=== PATIENT | female | born 1965 | race Caucasian/White ===

== ENCOUNTER 2017-12-10 07:23 | Day surgery (SDC) | payer BC ==
[~2017-12-10] VITALS: Ht 162.6 cm; Wt 71.7 kg
[~2017-12-10 07:23] MED LIST: FLUO10 PO
== END 2017-12-10 09:29 | disposition home or self-care (01) ==
LOC: ORSCMMR 07:23 → ORD 08:30 → ORSCMMR 09:29
PROVIDERS: Internal Medicine Gastroenterology
PROC: 0DBN8ZX Excision of Sigmoid Colon, Via Natural or Artificial Opening Endoscopic, Diagnostic (ICD-10-PCS; principal; 2017-12-10 08:30)
DX: Z12.11 Encounter for screening for malignant neoplasm of colon (principal); K63.5 Polyp of colon; K57.30 Diverticulosis of large intestine without perforation or abscess without bleeding; Z80.0 Family history of malignant neoplasm of digestive organs; Z86.010 Personal history of colon polyps; F32.9 Major depressive disorder, single episode, unspecified; F17.210 Nicotine dependence, cigarettes, uncomplicated; Z79.899 Other long term (current) drug therapy
CPT/HCPCS: 88305; J7120

== ENCOUNTER 2018-12-06 06:40 | Emergency (ER) | payer OTHER, BC ==
[~2018-12-06] VITALS: Ht 162.6 cm; Wt 70.3 kg
[2018-12-06] MEDS ORDERED: KETO10 PO (07:26)
[2018-12-06] MEDS ORDERED: LIDO700A20 TOP (07:26)
[2018-12-06] MEDS ORDERED: Cyclobenzaprine5 MG PO (07:26)
== END 2018-12-06 07:36 | disposition home or self-care (01) ==
LOC: ER 06:40
DX: S39.012A Strain of muscle, fascia and tendon of lower back, initial encounter (principal); X50.9XXA Other and unspecified overexertion or strenuous movements or postures, initial encounter; Z88.8 Allergy status to other drugs, medicaments and biological substances; Z79.899 Other long term (current) drug therapy
CPT/HCPCS: 99283

== ENCOUNTER → 2019-01-03 | Outpatient (CLI) | payer BC ==
[~2019-01-03] MED LIST changes: +Cyclobenzaprine5 MG PO; +KETO10 PO; +LIDO700A20 TOP
== END | disposition home or self-care (01) ==
LOC: LAB SHORT 11:51 → LAB 11:51
PROVIDERS: Nurse Practitioner Family
DX: Z12.4 Encounter for screening for malignant neoplasm of cervix (principal)
CPT/HCPCS: G0145